=== PATIENT | female | born 1955 | race African-American/Black ===

== ENCOUNTER 2017-12-25 17:00 | Emergency (ER) | payer OTHER ==
[~2017-12-25] VITALS: Ht 172.7 cm; Wt 56.2 kg
--- NOTE | ~2017-12-25 | EKG ---
[address] [address] ELECTROCARDIOGRAM REPORT Name: KENYONESTRELLAA Room #: DEP Jerald#: [id number] Admission: 12/25/17 Attend Phys: Discharge: 12/25/17 Date of : 51 Report #: [id number] THIS REPORT FOR: //name// [facility] ED Test Date: 2017-12-25 Test Time: 17:12:48 Pat Name: SUSANNE KENYON Department: Room: Gender: F [employer] Delivery Driver: KINDRA : 1955 Requested By: Cristiano Tran Order Number: [id number] MD: Jose L Arroyo Measurements Intervals [place] Rate: 107 P: 80 MI: 124 QRS: 32 QRSD: 93 T: 115 QT: 355 QTc: 474 Interpretive Statements Sinus tachycardia Nonspecific T abnormalities, lateral leads No previous ECG available for comparison Electronically Signed On 12-25-2017 22:30:33 CDT by Jose L Arroyo [email or web address] <ELECTRONICALLY SIGNED> By: Jose L Arroyo MD 12/25/17 2230 171 1712 MD ROMY Burgos
[2017-12-25] MEDS ORDERED: CARVEDILOL3.125 MG PO (17:11)
[2017-12-25] MEDS ORDERED: TRAMADOL 50 MG50 MG PO (17:12)
[2017-12-25] MEDS ORDERED: ZESTORETIC 20-1 EAC3 PO (17:12)
[2017-12-25] MEDS ORDERED: FOLIC ACID1 MG PO (17:12)
[2017-12-25] MEDS ORDERED: ACETAMINOPHEN-1 EAC1 PO (17:12)
[2017-12-25] MEDS ORDERED: BUSPIRONE HCL10 MG PO (17:13)
[2017-12-25] MEDS ORDERED: FLEXERIL PO (17:13)
[2017-12-25] MEDS ORDERED: OMEPRAZOLE 20 M20 M1 PO (17:13)
[2017-12-25] MEDS ORDERED: ATORVASTATIN CA40 MG PO (17:14)
[2017-12-25] MEDS ORDERED: ASA5UEC PO (17:14)
[2017-12-25] MEDS ORDERED: NEURONTIN 300300 M1 PO (17:14)
[2017-12-25] MEDS ORDERED: IRON325 PO (17:14)
[2017-12-25 17:36] LABS: CALCIUM 9.2 mg/dL (8.5-10.1); CREATININE 3.2 mg/dL (0.6-1.0); POTASSIUM 3.9 mmol/L (3.5-5.1)
[2017-12-25 17:37] LABS: BASOPHILS 0.4 % (0.0-2.0); EOSINOPHILS 2.3 % (0.0-3.0); HEMATOCRIT 24.4 % (37.0-47.0); HEMOGLOBIN 7.5 gm/dL (12.0-15.0); LYMPHOCYTES 12.5 % (24.0-44.0); MCH 23.9 pg (26.0-34.0); MCHC 30.9 g/dL (28.0-37.0); MCV 77.4 fL (80.0-100.0); MONOCYTES 6.5 % (1.0-8.0); PLATELET COUNT 473 thou/uL (150-400); POLYS 78.3 % (36.0-66.0); RBC 3.15 mil/uL (4.20-5.00); RDW 20.9 % (10.5-14.5); WBC 11.5 thou/uL (4.0-11.0)
[2017-12-25 17:44] LABS: URINE BILIRUBIN NEGATIVE (Negative); URINE BLOOD 3+ (Negative); URINE CLARITY CLEAR; URINE COLOR YELLOW; URINE GLUCOSE-RANDOM* NEGATIVE (Negative); URINE KETONES NEGATIVE (Negative); URINE LEUKOCYTES-REFLEX NEGATIVE (Negative); URINE NITRITE-REFLEX NEGATIVE (Negative); URINE PROTEIN (DIPSTICK) 2+ (Negative); URINE SPECIFIC GRAVITY 1.025 (1.005-1.035); URINE UROBILINOGEN 0.2 E.U./dl (0.2-1.0)
[2017-12-25 17:45] LABS: ALBUMIN 2.3 g/dL (3.4-5.0); TOTAL BILIRUBIN 0.4 mg/dL (<0.1-1.0); TOTAL PROTEIN 8.5 g/dL (6.4-8.2); TROPONIN-I 0.06 ng/mL (<0.06)
[2017-12-25 17:52] LABS: URINE WBC-REFLEX 0-5 Rare /HPF (0-5)
[2017-12-25 17:53] LABS: BACTERIA-REFLEX 1-9 Few /HPF (None Seen); CASTS None Seen /LPF (None Seen); CRYSTALS None Seen /LPF (None Seen); SQUAMOUS 0-3 Few /LPF (0-3)
[2017-12-25 18:06] LABS: ANISOCYTOSIS 2+; HYPOCHROMASIA 2+; MICROCYTES 1+
[2017-12-25 18:07] LABS: SCHISTOCYTES OCCASIONAL
[2017-12-25 18:08] LABS: POLYCHROMASIA OCCASIONAL
[2017-12-25 18:30] VITALS: BP 102/63
[2017-12-25] MEDS ORDERED: KEFLEX500 M1 PO (18:30)
== END 2017-12-25 18:42 | disposition home or self-care (01) ==
LOC: ER 17:00
PROVIDERS: Emergency Medicine
DX: N39.0 Urinary tract infection, site not specified (principal); R41.82 Altered mental status, unspecified; D64.9 Anemia, unspecified; R74.8 Abnormal levels of other serum enzymes; Z85.41 Personal history of malignant neoplasm of cervix uteri; M79.674 Pain in right toe(s)